=== PATIENT | female | born 1990 | race Caucasian/White ===

== ENCOUNTER 2016-08-11 09:33 | Emergency (ER) | payer OTHER, MEDICAID ==
[~2016-08-11] VITALS: Ht 162.6 cm; Wt 84.5 kg
[~2016-08-11 09:33] MED LIST: AMOXICILLIN 50500 MG PO; AMOXICILLIN 8751 TAB PO; ANUSOL SUP1 SUPP.REC RC; BENADRYL25 M2 PO; CARAFATE 1GM1 G PO; CEFTIN 250250 MG/TAB PO; CIPRO 500MG TA500 MG PO; DROSPIRENONE; FLAGYL500 MG PO; FLEXERIL 1010 MG/TAB PO; FROVA; LAMICTAL 100MG100 MG PO; LAMICTAL150 MG PO; LORTAB 5/500 501 TAB PO; MACROBID 1100 MG/CAP PO; MOTRIN 600600 MG/TAB PO; MOTRIN 800800 MG/TAB PO; NAPROXEN EC375 MG PO; NO HOME MEDICATIONS; NORCO 325 MG-51 TAB PO; NORCO 325 MG-7.1 TAB PO; ORTHO EVRA1 TD1 TD; PEPCID 20MG TAB20 MG PO; PERCOCET 325 MG1 TA2 PO; PHENERGAN 25 TA25 MG; PHENERGAN 25 TA25 MG PO; PRENATABS CBF1 TAB PO; PRENATAL MVI PO; PRENATAL1 TA2 PO; PRENATAL1 TA3 PO; PRILOSEC 20MG20 MG PO; PROMETHAZINE12.5 M5 PO; SENOKOT S 50 MG1 TAB PO; TYLENOL W/COD1 UDTAB PO; VITAMIN B12100 MCG PO; ZANTAC 150MG T150 MG PO; ZANTAC 7575 MG; ZOFRAN 4MG T4 MG/TAB PO; ZOFRAN ODT4 MG PO; [UNRECOGNIZED DRUG - OTHER]; birth control PO
[2016-08-11 11:22] LABS: PH 6 (5-8); SQUAMOUS EPITHELIAL 0-2 /hpf; URINE APPEARANCE Clear; URINE BACTERIA Rare /hpf; URINE BILIRUBIN Negative (NEGATIVE); URINE BLOOD Negative (NEGATIVE); URINE COLOR Yellow; URINE GLUCOSE Negative (NEGATIVE); URINE KETONE Negative (NEGATIVE); URINE RBC 0-2 /hpf; URINE UROBILINOGEN Negative (NEGATIVE); URINE WBC 0-2 /hpf
[2016-08-11] MEDS ORDERED: MOTRIN 800800 MG/TAB PO (11:45)
[2016-08-11 12:30] VITALS: BP 126/87; PULSE 82
== END 2016-08-11 12:30 | disposition home or self-care (01) ==
LOC: COL.ER 09:33
PROVIDERS: Emergency Medicine
DX: S40.011A Contusion of right shoulder, initial encounter (principal); S50.01XA Contusion of right elbow, initial encounter; S60.211A Contusion of right wrist, initial encounter; S70.01XA Contusion of right hip, initial encounter; V03.10XA Pedestrian on foot injured in collision with car, pick-up truck or van in traffic accident, initial encounter; Y92.414 Local residential or business street as the place of occurrence of the external cause; Y93.01 Activity, walking, marching and hiking

== ENCOUNTER 2016-09-01 19:14 | Emergency (ER) | payer MEDICAID ==
[~2016-09-01] VITALS: Ht 162.6 cm; Wt 84.5 kg
[2016-09-01 19:26] VITALS: TEMP 97.9
[2016-09-01 21:50] VITALS: BP 123/92; PULSE 82
== END 2016-09-01 21:52 | disposition home or self-care (01) ==
LOC: COL.ER 19:14
DX: G43.909 Migraine, unspecified, not intractable, without status migrainosus (principal)
CPT/HCPCS: J0595; J1200; J1885; J2550

== ENCOUNTER 2016-12-01 21:07 | Emergency (ER) | payer MEDICAID ==
[~2016-12-01] VITALS: Ht 162.6 cm; Wt 90.9 kg
[2016-12-01 21:09] VITALS: BP 130/78; TEMP 99.8
[2016-12-01 21:39] LABS: PH 5 (5-8); URINE APPEARANCE Hazy; URINE BACTERIA Rare /hpf; URINE BILIRUBIN Negative (NEGATIVE); URINE BLOOD Negative (NEGATIVE); URINE COLOR Yellow; URINE GLUCOSE Negative (NEGATIVE); URINE KETONE Trace (NEGATIVE); URINE UROBILINOGEN Negative (NEGATIVE)
[2016-12-01 22:04] LABS: BASO # 0.1 (0.0-0.2); BASO % 0.5 % (0.0-2.0); EOS # 0.2 (0.0-0.7); EOS % 1.9 % (0-4.0); GRAN # 6.4 (1.4-6.5); GRAN % 68.7 % (42.2-75.2); HEMATOCRIT 38.8 % (37.0-47.0); HEMOGLOBIN 13.1 g/dl (12.5-16.0); LYMPH # 2.1 (1.2-3.4); LYMPH % 22.4 % (20.0-51.0); MEAN CELL VOLUME 87 fl (80.0-100.0); MEAN CORPUSCULAR HEMOGLOBIN 29 pg (27.0-31.0); MEAN CORPUSCULAR HGB CONC 34 g/dl (33.0-37.0); MEAN PLATELET VOLUME 9.7 fl (7.4-10.4); MONO # 0.6 (0.1-0.6); MONO % 6.3 % (1.7-9.3); PLATELET COUNT 360 K/mm3 (130-400); RED BLOOD COUNT 4.48 M/mm3 (4.10-5.30); REDCELL DISTRIBUTION WIDTH-CV 13.9 % (11.5-14.5); WHITE BLOOD COUNT 9.4 K/mm3 (4.8-10.8)
[2016-12-01 22:14] LABS: CALCIUM 9.2 mg/dL (8.4-10.2); CREATININE, serum 0.81 mg/dL (0.52-1.25); POTASSIUM 3.5 mmol/L (3.4-5.0)
[2016-12-02 00:37] VITALS: PULSE 94
== END 2016-12-02 00:38 | disposition home or self-care (01) ==
LOC: COL.ER 21:07
PROVIDERS: Emergency Medicine
DX: O20.0 Threatened abortion (principal); Z3A.01 Less than 8 weeks gestation of pregnancy

== ENCOUNTER 2016-12-05 11:13 | Emergency (ER) | payer MEDICAID ==
[~2016-12-05] VITALS: Ht 162.6 cm; Wt 90.9 kg
[2016-12-05 11:19] VITALS: TEMP 97.7
[2016-12-05 11:50] LABS: BASO % 0.5 % (0.0-2.0); EOS # 0.1 (0.0-0.7); EOS % 1.3 % (0-4.0); GRAN # 4.2 (1.4-6.5); GRAN % 66.8 % (42.2-75.2); HEMATOCRIT 37.6 % (37.0-47.0); HEMOGLOBIN 12.7 g/dl (12.5-16.0); LYMPH # 1.5 (1.2-3.4); LYMPH % 24.3 % (20.0-51.0); MEAN CELL VOLUME 87 fl (80.0-100.0); MEAN CORPUSCULAR HEMOGLOBIN 30 pg (27.0-31.0); MEAN CORPUSCULAR HGB CONC 34 g/dl (33.0-37.0); MEAN PLATELET VOLUME 9.9 fl (7.4-10.4); MONO # 0.4 (0.1-0.6); MONO % 6.8 % (1.7-9.3); PLATELET COUNT 295 K/mm3 (130-400); REDCELL DISTRIBUTION WIDTH-CV 13.8 % (11.5-14.5); WHITE BLOOD COUNT 6.3 K/mm3 (4.8-10.8)
[2016-12-05 12:03] LABS: ALANINE AMINOTRANSFERASE 28 U/L (9-52); ALBUMIN 3.9 gm/dL (3.5-5.0); ALKALINE PHOSPHATASE 82 U/L (50-136); ANION GAP 10 mmol/L (7-16); BILIRUBIN,TOTAL 0.6 mg/dL (0.0-1.0); BLOOD UREA NITROGEN 8 mg/dL (7-17); CALCIUM 8.9 mg/dL (8.4-10.2); CARBON DIOXIDE 21 mmol/L (22-30); CHLORIDE 106 mmol/L (98-107); CREATININE, serum 0.64 mg/dL (0.52-1.25); GLUCOSE 83 mg/dL (74-106); LIPASE 51 U/L (23-300); POTASSIUM 3.7 mmol/L (3.4-5.0); SODIUM 137 mmol/L (137-145); TOTAL PROTEIN 7.1 gm/dL (6.4-8.2)
[2016-12-05 12:04] LABS: C-REACTIVE PROTEIN < 0.5 mg/dL (0.0-0.9)
[2016-12-05] MEDS ORDERED: PHENERGAN 25 TA25 MG PO (12:43)
[2016-12-05 12:54] LABS: PH 6 (5-8); URINE APPEARANCE Hazy; URINE BACTERIA Rare /hpf; URINE BILIRUBIN Negative (NEGATIVE); URINE BLOOD Negative (NEGATIVE); URINE COLOR Yellow; URINE GLUCOSE Negative (NEGATIVE); URINE KETONE 2+ (NEGATIVE); URINE UROBILINOGEN Negative (NEGATIVE)
[2016-12-05 13:32] VITALS: BP 124/84; PULSE 96
== END 2016-12-05 13:35 | disposition home or self-care (01) ==
LOC: COL.ER 11:13
PROVIDERS: Emergency Medicine
DX: O99.511 Diseases of the respiratory system complicating pregnancy, first trimester (principal); J02.0 Streptococcal pharyngitis; Z3A.09 9 weeks gestation of pregnancy
CPT/HCPCS: J0561; J1200; J2550; J7030

== ENCOUNTER 2016-12-18 14:21 | Emergency (ER) | payer MEDICAID ==
[~2016-12-18] VITALS: Ht 162.6 cm; Wt 90.9 kg
[2016-12-18 15:25] LABS: PH 5 (5-8); SQUAMOUS EPITHELIAL 0-2 /hpf; URINE APPEARANCE Clear; URINE BACTERIA Rare /hpf; URINE BILIRUBIN Negative (NEGATIVE); URINE BLOOD 1+ (NEGATIVE); URINE COLOR Yellow; URINE GLUCOSE Negative (NEGATIVE); URINE KETONE Negative (NEGATIVE); URINE UROBILINOGEN Negative (NEGATIVE)
[2016-12-18] MEDS ORDERED: MACROBID 1100 MG/CAP PO (15:47)
[2016-12-18 15:55] VITALS: BP 125/70; PULSE 97; TEMP 97.9
== END 2016-12-18 15:55 | disposition home or self-care (01) ==
LOC: COL.ER 14:21
PROVIDERS: Emergency Medicine
DX: O20.0 Threatened abortion (principal); O23.41 Unspecified infection of urinary tract in pregnancy, first trimester; Z3A.08 8 weeks gestation of pregnancy; Z90.49 Acquired absence of other specified parts of digestive tract; Z87.891 Personal history of nicotine dependence

== ENCOUNTER 2017-03-08 21:03 | Emergency (ER) | payer MEDICAID ==
[~2017-03-08] VITALS: Ht 162.6 cm; Wt 88.8 kg
[~2017-03-08 21:03] MED LIST changes: +PHENERGAN25 MG RC; +PROCARDIA XL 3030 MG PO
[2017-03-08 21:06] VITALS: BP 130/74; TEMP 97.8
[2017-03-08 21:59] LABS: BASO % 0.4 % (0.0-2.0); EOS # 0.1 (0.0-0.7); EOS % 1.3 % (0-4.0); GRAN # 7.3 (1.4-6.5); GRAN % 73.4 % (42.2-75.2); LYMPH # 1.9 (1.2-3.4); LYMPH % 19.4 % (20.0-51.0); MEAN CELL VOLUME 91 fl (80.0-100.0); MEAN CORPUSCULAR HGB CONC 35 g/dl (33.0-37.0); MEAN PLATELET VOLUME 9.9 fl (7.4-10.4); MONO # 0.5 (0.1-0.6); MONO % 5.1 % (1.7-9.3); PLATELET COUNT 276 K/mm3 (130-400)
[2017-03-08 22:00] LABS: HEMATOCRIT 34.4 % (37.0-47.0); HEMOGLOBIN 11.9 g/dl (12.5-16.0); MEAN CORPUSCULAR HEMOGLOBIN 31 pg (27.0-31.0)
[2017-03-08 22:14] LABS: ADJUSTED CALCIUM 10.1 mg/dL (8.4-10.2); ALBUMIN 3.5 gm/dL (3.5-5.0); BILIRUBIN,TOTAL 0.2 mg/dL (0.0-1.0); CALCIUM 9.7 mg/dL (8.4-10.2); CREATININE, serum 0.62 mg/dL (0.52-1.25); POTASSIUM 3.7 mmol/L (3.4-5.0); TOTAL PROTEIN 6.6 gm/dL (6.4-8.2)
[2017-03-08] MEDS ORDERED: DICLEGIS PO (22:52)
[2017-03-08 23:30] LABS: COLLECTION METHOD CLEAN CATCH
[2017-03-08 23:36] LABS: PH 7 (5-8); SQUAMOUS EPITHELIAL None Seen /hpf; URINE APPEARANCE Clear; URINE BACTERIA Rare /hpf; URINE BILIRUBIN Negative (NEGATIVE); URINE BLOOD Negative (NEGATIVE); URINE COLOR Straw; URINE GLUCOSE Negative (NEGATIVE); URINE KETONE Trace (NEGATIVE); URINE LEUKOCYTE ESTERASE Negative (NEGATIVE); URINE PROTEIN(semi-quant) Negative (NEGATIVE); URINE RBC 0-2 /hpf; URINE UROBILINOGEN Negative (NEGATIVE); URINE WBC None Seen /hpf
[2017-03-08 23:49] VITALS: PULSE 98
== END 2017-03-08 23:49 | disposition home or self-care (01) ==
LOC: COL.ER 21:03
PROVIDERS: Emergency Medicine
DX: O21.9 Vomiting of pregnancy, unspecified (principal); O99.352 Diseases of the nervous system complicating pregnancy, second trimester; G43.909 Migraine, unspecified, not intractable, without status migrainosus; Z90.49 Acquired absence of other specified parts of digestive tract; Z87.891 Personal history of nicotine dependence; Z3A.19 19 weeks gestation of pregnancy
CPT/HCPCS: J2550; J7030

== ENCOUNTER 2017-03-21 12:57 | Emergency (ER) | payer MEDICAID ==
[~2017-03-21] VITALS: Ht 162.6 cm; Wt 90.5 kg
[~2017-03-21 12:57] MED LIST changes: +DICLEGIS PO
[2017-03-21 13:17] VITALS: TEMP 98.4
[2017-03-21] MEDS ORDERED: ZANTAC 150MG T150 MG PO (13:23)
[2017-03-21 14:24] LABS: BASO % 0.3 % (0.0-2.0); EOS # 0.1 (0.0-0.7); GRAN # 8.7 (1.4-6.5); GRAN % 82.2 % (42.2-75.2); LYMPH # 1.3 (1.2-3.4); MEAN CELL VOLUME 93 fl (80.0-100.0); MEAN CORPUSCULAR HGB CONC 34 g/dl (33.0-37.0); MEAN PLATELET VOLUME 10.1 fl (7.4-10.4); MONO # 0.4 (0.1-0.6); MONO % 4.1 % (1.7-9.3); PLATELET COUNT 265 K/mm3 (130-400); RED BLOOD COUNT 3.76 M/mm3 (4.10-5.30); WHITE BLOOD COUNT 10.6 K/mm3 (4.8-10.8)
[2017-03-21 14:26] LABS: HEMOGLOBIN 11.8 g/dl (12.5-16.0); MEAN CORPUSCULAR HEMOGLOBIN 31 pg (27.0-31.0)
[2017-03-21 14:30] LABS: PROTHROMBIN TIME 11.2 SECONDS (9.7-12.8)
[2017-03-21 14:32] LABS: PARTIAL THROMBOPLASTIN TIME 25.3 SECONDS (26.0-37.0)
[2017-03-21 14:37] LABS: ADJUSTED CALCIUM 9.3 mg/dL (8.4-10.2); ALANINE AMINOTRANSFERASE 20 U/L (9-52); ALBUMIN 3.3 gm/dL (3.5-5.0); ALKALINE PHOSPHATASE 69 U/L (50-136); ANION GAP 6 mmol/L (7-16); BILIRUBIN,TOTAL 0.4 mg/dL (0.0-1.0); BLOOD UREA NITROGEN 7 mg/dL (7-17); CALCIUM 8.7 mg/dL (8.4-10.2); CARBON DIOXIDE 22 mmol/L (22-30); CHLORIDE 107 mmol/L (98-107); GLUCOSE 75 mg/dL (74-106); SODIUM 134 mmol/L (137-145); TOTAL PROTEIN 6.2 gm/dL (6.4-8.2)
[2017-03-21 15:05] LABS: TROPONIN-I < 0.012 ng/mL (0.000-0.034)
[2017-03-21 17:09] VITALS: BP 109/69; PULSE 97
== END 2017-03-21 17:34 | disposition home or self-care (01) ==
LOC: COL.ER 12:57
PROVIDERS: Emergency Medicine
DX: O26.892 Other specified pregnancy related conditions, second trimester (principal); R07.9 Chest pain, unspecified; Z3A.21 21 weeks gestation of pregnancy
CPT/HCPCS: J2550; J7030

== ENCOUNTER 2017-04-23 11:54 | Emergency (ER) | payer MEDICAID ==
[~2017-04-23] VITALS: Ht 162.6 cm; Wt 90.9 kg
[2017-04-23 12:12] VITALS: BP 134/63; TEMP 98.4
[2017-04-23] MEDS ORDERED: BENADRYL25 M2 PO (12:46)
[2017-04-23] MEDS ORDERED: GENTAMICIN EYE D5 ML OS (13:04)
[2017-04-23 14:26] VITALS: PULSE 84
== END 2017-04-23 14:27 | disposition home or self-care (01) ==
LOC: COL.ER 11:54
DX: B99.9 Unspecified infectious disease (principal); H10.89 Other conjunctivitis

== ENCOUNTER 2017-05-08 16:50 | Outpatient (CLI) | payer MEDICAID ==
[~2017-05-08] VITALS: Ht 162.6 cm; Wt 91.4 kg
[~2017-05-08 16:50] MED LIST changes: +GENTAMICIN EYE D5 ML OS
[2017-05-08 17:15] VITALS: BP 127/76; PULSE 103; TEMP 98.5
[2017-05-08 18:13] LABS: COLLECTION METHOD CLEAN CATCH
[2017-05-08 18:15] VITALS: BP 122/78; PULSE 95
[2017-05-08 18:35] LABS: PH 7 (5-8); SQUAMOUS EPITHELIAL 0-2 /hpf; URINE APPEARANCE Clear; URINE BACTERIA Rare /hpf; URINE BILIRUBIN Negative (NEGATIVE); URINE BLOOD Negative (NEGATIVE); URINE COLOR Yellow; URINE GLUCOSE Negative (NEGATIVE); URINE KETONE Negative (NEGATIVE); URINE LEUKOCYTE ESTERASE Negative (NEGATIVE); URINE NITRATE Negative (NEGATIVE); URINE PROTEIN(semi-quant) Negative (NEGATIVE); URINE RBC 0-2 /hpf; URINE UROBILINOGEN Negative (NEGATIVE); URINE WBC 0-2 /hpf
[2017-05-08 19:06] VITALS: BP 122/75; PULSE 100; TEMP 98.4
== END 2017-05-08 19:15 | disposition home or self-care (01) ==
LOC: LDRO 16:50
PROVIDERS: Obstetrics & Gynecology
DX: O36.8130 Decreased fetal movements, third trimester, not applicable or unspecified (principal); O26.893 Other specified pregnancy related conditions, third trimester; R10.9 Unspecified abdominal pain; Z3A.28 28 weeks gestation of pregnancy

== ENCOUNTER 2017-05-30 16:09 | Outpatient (CLI) | payer OTHER, MEDICAID ==
[~2017-05-30] VITALS: Ht 162.6 cm; Wt 93.2 kg
[2017-05-30 16:26] VITALS: BP 123/65; PULSE 97; TEMP 98.4
[2017-05-30 16:40] VITALS: BP 127/72; PULSE 91
[2017-05-30 16:45] VITALS: BP 123/65; PULSE 97; TEMP 98.7
[2017-05-30 17:02] VITALS: BP 134/81; PULSE 94
== END 2017-05-30 17:35 | disposition home or self-care (01) ==
LOC: LDRO 16:09
DX: O36.8130 Decreased fetal movements, third trimester, not applicable or unspecified (principal); Z3A.31 31 weeks gestation of pregnancy

== ENCOUNTER 2017-05-30 21:24 | Outpatient (CLI) | payer OTHER, MEDICAID ==
[~2017-05-30] VITALS: Ht 162.6 cm; Wt 93.2 kg
[2017-05-30 21:48] VITALS: BP 143/82; PULSE 108; TEMP 98.2
[2017-05-30 22:15] VITALS: BP 129/74; PULSE 100
[2017-05-30 22:24] VITALS: BP 128/75; PULSE 90; TEMP 98.1
[2017-05-30 22:24] LABS: COLLECTION METHOD CLEAN CATCH
[2017-05-30 22:29] LABS: PH 6 (5-8); SQUAMOUS EPITHELIAL 0-2 /hpf; URINE APPEARANCE Clear; URINE BACTERIA Rare /hpf; URINE BILIRUBIN Negative (NEGATIVE); URINE BLOOD Negative (NEGATIVE); URINE COLOR Yellow; URINE GLUCOSE Negative (NEGATIVE); URINE KETONE Negative (NEGATIVE); URINE LEUKOCYTE ESTERASE Negative (NEGATIVE); URINE NITRATE Negative (NEGATIVE); URINE PROTEIN(semi-quant) Negative (NEGATIVE); URINE RBC 0-2 /hpf; URINE UROBILINOGEN Negative (NEGATIVE); URINE WBC 0-2 /hpf
== END 2017-05-30 23:05 | disposition home or self-care (01) ==
LOC: LDRO 21:24
PROVIDERS: Obstetrics & Gynecology
DX: O26.893 Other specified pregnancy related conditions, third trimester (principal); Z3A.31 31 weeks gestation of pregnancy

== ENCOUNTER 2017-06-04 14:15 | Emergency (ER) | payer OTHER, MEDICAID ==
[~2017-06-04] VITALS: Ht 162.6 cm; Wt 93.2 kg
[2017-06-04 14:22] VITALS: TEMP 98.3
[2017-06-04 15:07] LABS: BASO % 0.3 % (0.0-2.0); EOS # 0.1 (0.0-0.7); EOS % 0.4 % (0-4.0); GRAN # 12.9 (1.4-6.5); GRAN % 85.7 % (42.2-75.2); HEMATOCRIT 37.8 % (37.0-47.0); HEMOGLOBIN 12.9 g/dl (12.5-16.0); LYMPH # 1.5 (1.2-3.4); LYMPH % 9.6 % (20.0-51.0); MEAN CELL VOLUME 93 fl (80.0-100.0); MEAN CORPUSCULAR HEMOGLOBIN 32 pg (27.0-31.0); MEAN CORPUSCULAR HGB CONC 34 g/dl (33.0-37.0); MEAN PLATELET VOLUME 10.5 fl (7.4-10.4); MONO # 0.5 (0.1-0.6); MONO % 3.6 % (1.7-9.3); PLATELET COUNT 289 K/mm3 (130-400); RED BLOOD COUNT 4.05 M/mm3 (4.10-5.30); REDCELL DISTRIBUTION WIDTH-CV 13.5 % (11.5-14.5)
[2017-06-04 15:15] LABS: ALBUMIN 3.6 gm/dL (3.5-5.0); BILIRUBIN,TOTAL 0.4 mg/dL (0.0-1.0); CREATININE, serum 0.62 mg/dL (0.52-1.25); TOTAL PROTEIN 7.1 gm/dL (6.4-8.2)
[2017-06-04] MEDS ORDERED: PHENERGAN 25 TA25 MG PO (15:32)
[2017-06-04 17:38] VITALS: BP 116/78; PULSE 100
== END 2017-06-04 17:40 | disposition home or self-care (01) ==
LOC: LDRO 14:15 → COL.ER 14:15 → EDSTATUS 14:18 → COL.ER 17:40
PROVIDERS: Emergency Medicine
DX: O21.2 Late vomiting of pregnancy (principal); O99.343 Other mental disorders complicating pregnancy, third trimester; G43.909 Migraine, unspecified, not intractable, without status migrainosus; F31.9 Bipolar disorder, unspecified; O13.3 Gestational [pregnancy-induced] hypertension without significant proteinuria, third trimester; Z90.49 Acquired absence of other specified parts of digestive tract; Z87.891 Personal history of nicotine dependence; Z3A.32 32 weeks gestation of pregnancy
CPT/HCPCS: J2550; J7030

== ENCOUNTER 2017-07-09 07:28 | Outpatient (CLI) | payer OTHER, MEDICAID ==
[~2017-07-09] VITALS: Ht 162.6 cm; Wt 94.5 kg
[2017-07-09 07:42] VITALS: BP 130/84; PULSE 97; TEMP 98.2
[2017-07-09 08:45] VITALS: BP 130/84; PULSE 97; TEMP 98.2
[2017-07-09 09:45] VITALS: BP 134/81; PULSE 90
== END 2017-07-09 10:00 | disposition home or self-care (01) ==
LOC: LDRO 07:28 → LDR 08:00 → LDRO 10:00
DX: O62.9 Abnormality of forces of labor, unspecified (principal); Z3A.36 36 weeks gestation of pregnancy
CPT/HCPCS: OP

== ENCOUNTER 2017-07-14 02:37 | Outpatient (CLI) | payer OTHER, MEDICAID ==
[~2017-07-14] VITALS: Ht 162.6 cm; Wt 95.0 kg
[2017-07-14 03:30] VITALS: BP 121/76; PULSE 90; TEMP 97.5
[2017-07-14 04:00] VITALS: BP 113/73; PULSE 92
== END 2017-07-14 04:00 | disposition home or self-care (01) ==
LOC: LDRO 02:37
DX: O62.9 Abnormality of forces of labor, unspecified (principal); Z3A.37 37 weeks gestation of pregnancy

== ENCOUNTER 2017-07-17 18:07 | Outpatient (CLI) | payer OTHER, MEDICAID ==
[~2017-07-17] VITALS: Ht 162.6 cm; Wt 95.0 kg
[2017-07-17 18:22] VITALS: BP 132/95; PULSE 110; TEMP 98.1
[2017-07-17 19:00] VITALS: BP 133/83; PULSE 96
[2017-07-17 19:30] VITALS: BP 131/81; PULSE 99
[2017-07-17 19:57] VITALS: BP 132/78; PULSE 103
== END 2017-07-17 20:12 | disposition home or self-care (01) ==
LOC: LDRO 18:07
DX: O42.02 Full-term premature rupture of membranes, onset of labor within 24 hours of rupture (principal); Z3A.38 38 weeks gestation of pregnancy; Z87.891 Personal history of nicotine dependence

== ENCOUNTER 2017-07-19 21:18 | Outpatient (CLI) | payer OTHER, MEDICAID ==
[~2017-07-19] VITALS: Ht 162.6 cm; Wt 95.5 kg
[2017-07-19 21:36] VITALS: BP 128/66; PULSE 103; TEMP 98.4
[2017-07-19 22:00] VITALS: BP 133/83; PULSE 95
[2017-07-19 22:30] VITALS: BP 121/60; PULSE 93
[2017-07-19 23:00] VITALS: BP 123/62; PULSE 93
== END 2017-07-19 23:10 | disposition home or self-care (01) ==
LOC: LDRO 21:18
DX: O62.9 Abnormality of forces of labor, unspecified (principal); Z3A.38 38 weeks gestation of pregnancy

== ENCOUNTER 2017-07-20 01:25 | Inpatient (IN) | payer OTHER, MEDICAID ==
[2017-07-20] VITALS (38 sets, daily range): BP systolic 101–154; BP diastolic 44–88; PULSE 82–130; TEMP 97.8–99.2
[~2017-07-20] VITALS: Ht 162.6 cm; Wt 95.5 kg
[2017-07-20 02:19] LABS: BASO % 0.3 % (0.0-2.0); EOS # 0.2 (0.0-0.7); EOS % 1.3 % (0-4.0); GRAN # 9.1 (1.4-6.5); GRAN % 69.7 % (42.2-75.2); HEMATOCRIT 38.3 % (37.0-47.0); HEMOGLOBIN 12.9 g/dl (12.5-16.0); LYMPH # 2.9 (1.2-3.4); LYMPH % 22.3 % (20.0-51.0); MEAN CELL VOLUME 93 fl (80.0-100.0); MEAN CORPUSCULAR HEMOGLOBIN 31 pg (27.0-31.0); MEAN CORPUSCULAR HGB CONC 34 g/dl (33.0-37.0); MEAN PLATELET VOLUME 11.2 fl (7.4-10.4); MONO # 0.8 (0.1-0.6); PLATELET COUNT 245 K/mm3 (130-400); RED BLOOD COUNT 4.12 M/mm3 (4.10-5.30); REDCELL DISTRIBUTION WIDTH-CV 13.3 % (11.5-14.5)
[2017-07-21 02:20] VITALS: BP 116/70; PULSE 96; TEMP 97.6
[2017-07-21 07:00] VITALS: BP 125/81; PULSE 90; TEMP 97.5
[2017-07-21] MEDS ORDERED: PERCOCET 325 MG1 TA2 PO (12:03)
[2017-07-21] MEDS ORDERED: IBU600 MG PO (12:04)
[2017-07-21 12:30] VITALS: BP 118/66; PULSE 86; TEMP 97.6
[2017-07-21 13:00] VITALS: BP 125/73; PULSE 88; TEMP 97.7
== END 2017-07-21 13:30 | disposition home or self-care (01) | DRG 775 ==
LOC: LDRO 01:25 → LDR 01:48 → OB 01:48
PROVIDERS: Obstetrics & Gynecology
PROC: 10E0XZZ Delivery of Products of Conception, External Approach (ICD-10-PCS; principal; 2017-07-20)
DX: O13.4 Gestational [pregnancy-induced] hypertension without significant proteinuria, complicating childbirth (principal); O76 Abnormality in fetal heart rate and rhythm complicating labor and delivery; Z3A.38 38 weeks gestation of pregnancy; Z37.0 Single live birth
CPT/HCPCS: J2405; J2590; J7120

== ENCOUNTER 2017-12-24 19:15 | Emergency (ER) | payer OTHER, MEDICAID ==
[~2017-12-24] VITALS: Ht 162.6 cm; Wt 94.1 kg
[~2017-12-24 19:15] MED LIST changes: +IBU600 MG PO
[2017-12-24 19:28] VITALS: BP 140/81; TEMP 96.8
[2017-12-24 20:21] LABS: BASO % 0.5 % (0.0-2.0); EOS # 0.4 (0.0-0.7); EOS % 5.1 % (0-4.0); GRAN # 4.3 (1.4-6.5); HEMATOCRIT 40.2 % (37.0-47.0); HEMOGLOBIN 13.2 g/dl (12.5-16.0); LYMPH # 2.6 (1.2-3.4); LYMPH % 33.4 % (20.0-51.0); MEAN CELL VOLUME 89 fl (80.0-100.0); MEAN CORPUSCULAR HEMOGLOBIN 29 pg (27.0-31.0); MEAN CORPUSCULAR HGB CONC 33 g/dl (33.0-37.0); MEAN PLATELET VOLUME 9.8 fl (7.4-10.4); MONO # 0.5 (0.1-0.6); MONO % 5.9 % (1.7-9.3); PLATELET COUNT 314 K/mm3 (130-400); RED BLOOD COUNT 4.54 M/mm3 (4.10-5.30)
[2017-12-24 20:32] LABS: ALBUMIN 3.9 gm/dL (3.5-5.0); BILIRUBIN,TOTAL 0.3 mg/dL (0.0-1.0); C-REACTIVE PROTEIN 0.7 mg/dL (0.0-0.9); CALCIUM 8.9 mg/dL (8.4-10.2); CREATININE, serum 0.66 mg/dL (0.52-1.25); TOTAL PROTEIN 7.2 gm/dL (6.4-8.2)
[2017-12-24 22:07] VITALS: PULSE 80
== END 2017-12-24 22:08 | disposition home or self-care (01) ==
LOC: COL.ER 19:15
PROVIDERS: Nurse Practitioner
DX: G43.909 Migraine, unspecified, not intractable, without status migrainosus (principal); F31.9 Bipolar disorder, unspecified; F44.81 Dissociative identity disorder; F17.210 Nicotine dependence, cigarettes, uncomplicated; Z79.891 Long term (current) use of opiate analgesic; Z79.1 Long term (current) use of non-steroidal anti-inflammatories (NSAID)
CPT/HCPCS: J1200; J1885; J2550; J2765; J7030

== ENCOUNTER 2018-01-28 21:49 | Emergency (ER) | payer OTHER, MEDICAID ==
[~2018-01-28] VITALS: Ht 162.6 cm; Wt 90.0 kg
[~2018-01-28 21:49] MED LIST changes: +PROTONIX 40MG T40 MG PO
[2018-01-28 22:35] LABS: BASO # 0.1 (0.0-0.2); BASO % 0.6 % (0.0-2.0); EOS # 0.3 (0.0-0.7); EOS % 4.1 % (0-4.0); GRAN # 4.3 (1.4-6.5); GRAN % 54.7 % (42.2-75.2); HEMATOCRIT 40.3 % (37.0-47.0); HEMOGLOBIN 13.6 g/dl (12.5-16.0); LYMPH # 2.6 (1.2-3.4); LYMPH % 33.4 % (20.0-51.0); MEAN CELL VOLUME 88 fl (80.0-100.0); MEAN CORPUSCULAR HEMOGLOBIN 30 pg (27.0-31.0); MEAN CORPUSCULAR HGB CONC 34 g/dl (33.0-37.0); MEAN PLATELET VOLUME 9.7 fl (7.4-10.4); MONO # 0.6 (0.1-0.6); MONO % 7.1 % (1.7-9.3); PLATELET COUNT 343 K/mm3 (130-400); RED BLOOD COUNT 4.56 M/mm3 (4.10-5.30); REDCELL DISTRIBUTION WIDTH-CV 13.1 % (11.5-14.5)
[2018-01-28 22:41] LABS: ALBUMIN 4.2 gm/dL (3.5-5.0); BILIRUBIN,TOTAL 0.7 mg/dL (0.0-1.0); CALCIUM 9.8 mg/dL (8.4-10.2); CREATININE, serum 0.76 mg/dL (0.52-1.25); TOTAL PROTEIN 7.7 gm/dL (6.4-8.2)
[2018-01-28 22:51] LABS: COLLECTION METHOD CLEAN CATCH
[2018-01-28 23:01] LABS: MUCOUS Present /lpf; PH 6 (5-8); SQUAMOUS EPITHELIAL 20-50 /hpf; URINE APPEARANCE Cloudy; URINE BACTERIA None Seen /hpf; URINE BILIRUBIN Negative (NEGATIVE); URINE BLOOD Negative (NEGATIVE); URINE COLOR Yellow; URINE GLUCOSE Negative (NEGATIVE); URINE KETONE Negative (NEGATIVE); URINE LEUKOCYTE ESTERASE 1+ (NEGATIVE); URINE NITRATE Negative (NEGATIVE); URINE PROTEIN(semi-quant) Negative (NEGATIVE); URINE RBC 0-2 /hpf; URINE UROBILINOGEN Negative (NEGATIVE)
[2018-01-28] MEDS ORDERED: CIPRO 500MG TA500 MG PO (23:18)
[2018-01-28 23:48] VITALS: BP 137/88; PULSE 95; TEMP 98.1
== END 2018-01-28 23:48 | disposition home or self-care (01) ==
LOC: COL.ER 21:49
PROVIDERS: Nurse Practitioner Primary Care
DX: N39.0 Urinary tract infection, site not specified (principal); K21.9 Gastro-esophageal reflux disease without esophagitis; G43.909 Migraine, unspecified, not intractable, without status migrainosus; Z90.49 Acquired absence of other specified parts of digestive tract
CPT/HCPCS: J1885; J2405; J2550

== ENCOUNTER 2018-07-17 18:52 | Emergency (ER) | payer OTHER ==
[~2018-07-17] VITALS: Ht 162.6 cm; Wt 90.9 kg
[2018-07-17 18:55] VITALS: BP 143/89; TEMP 97.5
[2018-07-17 19:22] LABS: COLLECTION METHOD CLEAN CATCH
[2018-07-17 19:29] LABS: BASO # 0.1 (0.0-0.2); BASO % 0.5 % (0.0-2.0); EOS # 0.2 (0.0-0.7); EOS % 1.7 % (0-4.0); GRAN # 7.1 (1.4-6.5); GRAN % 69.4 % (42.2-75.2); HEMATOCRIT 43.5 % (37.0-47.0); HEMOGLOBIN 14.1 g/dl (12.5-16.0); LYMPH # 2.3 (1.2-3.4); LYMPH % 22.8 % (20.0-51.0); MEAN CELL VOLUME 90 fl (80.0-100.0); MEAN CORPUSCULAR HEMOGLOBIN 29 pg (27.0-31.0); MEAN CORPUSCULAR HGB CONC 32 g/dl (33.0-37.0); MONO # 0.5 (0.1-0.6); MONO % 5.3 % (1.7-9.3); PH 5 (5-8); PLATELET COUNT 355 K/mm3 (130-400); RED BLOOD COUNT 4.83 M/mm3 (4.10-5.30); REDCELL DISTRIBUTION WIDTH-CV 13.2 % (11.5-14.5); URINE APPEARANCE Hazy; URINE BACTERIA None Seen /hpf; URINE BILIRUBIN Negative (NEGATIVE); URINE BLOOD 1+ (NEGATIVE); URINE COLOR Yellow; URINE GLUCOSE Negative (NEGATIVE); URINE KETONE Negative (NEGATIVE); URINE LEUKOCYTE ESTERASE 1+ (NEGATIVE); URINE NITRATE Negative (NEGATIVE); URINE PROTEIN(semi-quant) 1+ (NEGATIVE); URINE RBC 0-2 /hpf; URINE UROBILINOGEN Negative (NEGATIVE)
[2018-07-17 19:39] LABS: ALANINE AMINOTRANSFERASE 20 U/L (9-52); ALBUMIN 3.9 gm/dL (3.5-5.0); ALKALINE PHOSPHATASE 91 U/L (50-136); ANION GAP 10 mmol/L (7-16); AST,SGOT 20 U/L (15-37); BILIRUBIN,TOTAL 0.2 mg/dL (0.0-1.0); BLOOD UREA NITROGEN 16 mg/dL (7-17); CALCIUM 8.8 mg/dL (8.4-10.2); CARBON DIOXIDE 20 mmol/L (22-30); CHLORIDE 109 mmol/L (98-107); CREATININE, serum 0.82 mg/dL (0.52-1.25); GLUCOSE 104 mg/dL (74-106); LIPASE 68 U/L (23-300); POTASSIUM 4.1 mmol/L (3.4-5.0); SODIUM 140 mmol/L (137-145); TOTAL PROTEIN 7.1 gm/dL (6.4-8.2)
[2018-07-17 19:40] LABS: C-REACTIVE PROTEIN < 0.5 mg/dL (0.0-0.9)
[2018-07-17] MEDS ORDERED: REGLAN 10MG10 MG/TAB PO (21:43)
[2018-07-17] MEDS ORDERED: NORCO 325 MG-51 TAB PO (21:43)
[2018-07-17] MEDS ORDERED: BENTYL 20MG20 MG/TAB PO (21:43)
[2018-07-17 22:01] VITALS: PULSE 99
== END 2018-07-17 22:00 | disposition home or self-care (01) ==
LOC: COL.ER 18:52
PROVIDERS: Emergency Medicine
DX: R10.11 Right upper quadrant pain (principal); R11.0 Nausea; G43.909 Migraine, unspecified, not intractable, without status migrainosus; Z87.891 Personal history of nicotine dependence; Z90.49 Acquired absence of other specified parts of digestive tract; Z88.6 Allergy status to analgesic agent; Z88.8 Allergy status to other drugs, medicaments and biological substances
CPT/HCPCS: J0500; J2405; J2765; J3010; J7030; Q9967

== ENCOUNTER 2018-10-26 19:58 | Emergency (ER) | payer OTHER ==
[~2018-10-26 19:58] MED LIST changes: +BENTYL 20MG20 MG/TAB PO; +REGLAN 10MG10 MG/TAB PO
[2018-10-26 20:06] VITALS: TEMP 98.3
[2018-10-26] MEDS ORDERED: CEPHALEXIN500 M1 PO (20:35)
[2018-10-26] MEDS ORDERED: NORCO 325 MG-51 TAB PO (20:35)
[2018-10-26 21:09] VITALS: BP 141/65; PULSE 109
== END 2018-10-26 21:09 | disposition home or self-care (01) ==
LOC: COL.ER 19:58
DX: N61.0 Mastitis without abscess (principal)

== ENCOUNTER 2019-02-12 16:23 | Emergency (ER) | payer OTHER ==
[~2019-02-12] VITALS: Ht 162.6 cm; Wt 90.9 kg
[~2019-02-12 16:23] MED LIST changes: +CEPHALEXIN500 M1 PO
[2019-02-12 16:33] VITALS: TEMP 97.7
[2019-02-12 17:33] LABS: BASO % 0.1 % (0.0-2.0); EOS % 0.1 % (0-4.0); GRAN # 13.4 (1.4-6.5); GRAN % 87.6 % (42.2-75.2); HEMATOCRIT 49.1 % (37.0-47.0); HEMOGLOBIN 15.8 g/dl (12.5-16.0); LYMPH # 1.3 (1.2-3.4); LYMPH % 8.6 % (20.0-51.0); MEAN CELL VOLUME 89 fl (80.0-100.0); MEAN CORPUSCULAR HEMOGLOBIN 29 pg (27.0-31.0); MEAN CORPUSCULAR HGB CONC 32 g/dl (33.0-37.0); MONO # 0.5 (0.1-0.6); MONO % 3.3 % (1.7-9.3); PLATELET COUNT 389 K/mm3 (130-400); RED BLOOD COUNT 5.51 M/mm3 (4.10-5.30); REDCELL DISTRIBUTION WIDTH-CV 13.3 % (11.5-14.5)
[2019-02-12 17:37] LABS: ALBUMIN 4.4 gm/dL (3.5-5.0); BILIRUBIN,TOTAL 0.3 mg/dL (0.0-1.0); C-REACTIVE PROTEIN 1.2 mg/dL (0.0-0.9); CALCIUM 9.3 mg/dL (8.4-10.2); CREATININE, serum 0.82 (0.52-1.25); POTASSIUM 4.3 mmol/L (3.4-5.0); TOTAL PROTEIN 8.1 gm/dL (6.4-8.2)
[2019-02-12 18:32] LABS: COLLECTION METHOD CLEAN CATCH
[2019-02-12 18:38] LABS: MUCOUS Present /lpf; PH 6 (5-8); SQUAMOUS EPITHELIAL 0-2 /hpf; URINE APPEARANCE Clear; URINE BACTERIA Rare /hpf; URINE BILIRUBIN Negative (NEGATIVE); URINE BLOOD Negative (NEGATIVE); URINE COLOR Yellow; URINE GLUCOSE Negative (NEGATIVE); URINE KETONE Trace (NEGATIVE); URINE LEUKOCYTE ESTERASE Negative (NEGATIVE); URINE NITRATE Negative (NEGATIVE); URINE PROTEIN(semi-quant) Negative (NEGATIVE); URINE RBC 0-2 /hpf; URINE UROBILINOGEN Negative (NEGATIVE)
[2019-02-12] MEDS ORDERED: NEXIUM 20MG20 MG PO (19:36)
[2019-02-12] MEDS ORDERED: PHENERGAN 25 TA25 MG PO (19:38)
[2019-02-12 19:48] VITALS: BP 120/87; PULSE 104
== END 2019-02-12 19:52 | disposition home or self-care (01) ==
LOC: COL.ER 16:23
PROVIDERS: Emergency Medicine
DX: R10.13 Epigastric pain (principal); Z90.89 Acquired absence of other organs
CPT/HCPCS: J0780; J1170; J7030; Q9967

== ENCOUNTER 2019-03-13 16:44 | Emergency (ER) | payer OTHER ==
[~2019-03-13] VITALS: Ht 162.6 cm; Wt 97.7 kg
[~2019-03-13 16:44] MED LIST changes: +NEXIUM 20MG20 MG PO
[2019-03-13 17:01] VITALS: TEMP 98.3
[2019-03-13 18:37] LABS: BASO % 0.5 % (0.0-2.0); EOS # 0.1 (0.0-0.7); EOS % 0.9 % (0-4.0); GRAN % 73.3 % (42.2-75.2); HEMATOCRIT 42.4 % (37.0-47.0); HEMOGLOBIN 13.9 g/dl (12.5-16.0); LYMPH # 1.6 (1.2-3.4); LYMPH % 19.6 % (20.0-51.0); MEAN CELL VOLUME 88 fl (80.0-100.0); MEAN CORPUSCULAR HEMOGLOBIN 29 pg (27.0-31.0); MEAN CORPUSCULAR HGB CONC 33 g/dl (33.0-37.0); MEAN PLATELET VOLUME 9.7 fl (7.4-10.4); MONO # 0.4 (0.1-0.6); MONO % 5.1 % (1.7-9.3); PLATELET COUNT 324 K/mm3 (130-400); REDCELL DISTRIBUTION WIDTH-CV 13.2 % (11.5-14.5)
[2019-03-13 18:41] LABS: ALBUMIN 4.4 gm/dL (3.5-5.0); BILIRUBIN,TOTAL 0.4 mg/dL (0.0-1.0); CALCIUM 9.2 mg/dL (8.4-10.2); CREATININE, serum 0.73 (0.52-1.25); POTASSIUM 3.7 mmol/L (3.4-5.0); TOTAL PROTEIN 7.9 gm/dL (6.4-8.2)
[2019-03-13 20:12] VITALS: BP 126/81; PULSE 86
== END 2019-03-13 20:19 | disposition home or self-care (01) ==
LOC: COL.ER 16:44
PROVIDERS: Nurse Practitioner
DX: S16.1XXA Strain of muscle, fascia and tendon at neck level, initial encounter (principal); G43.909 Migraine, unspecified, not intractable, without status migrainosus; F31.9 Bipolar disorder, unspecified; W10.9XXA Fall (on) (from) unspecified stairs and steps, initial encounter; Z87.891 Personal history of nicotine dependence; Z88.5 Allergy status to narcotic agent; Z90.89 Acquired absence of other organs
CPT/HCPCS: J1200; J1885; J2765; J7030

== ENCOUNTER 2023-12-28 08:00 | Outpatient (CLI) | payer MEDICAID ==
[~2023-12-28] VITALS: Ht 162.7 cm; Wt 89.0 kg
[2023-12-28] MEDS ORDERED: LAMICTAL 25MG T25 MG PO (08:41)
[2023-12-28] MEDS ORDERED: PRINIVIL10 MG PO (08:41)
[2023-12-28] MEDS ORDERED: INDERAL 20MG20 MG PO (08:42)
[2023-12-28] MEDS ORDERED: QELBREE200 MG PO (08:42)
[2023-12-28] MEDS ORDERED: FLEXERIL5 MG PO (08:43)
[2023-12-28 08:56] VITALS: BP 136/84; PULSE 95; TEMP 97.9
[2023-12-28 10:24] VITALS: BP 129/79; PULSE 94
[2023-12-28 10:30] VITALS: BP 115/81; PULSE 90
[2023-12-28 10:45] VITALS: BP 122/75; PULSE 100
[2023-12-28 11:00] VITALS: BP 122/75; PULSE 93
[2023-12-28] MEDS ORDERED: TIAZAC120 MG PO (12:10)
--- NOTE | 2023-12-28 12:23 | NUR ---
PT TOLERATED RECOVERY PERIOD WELL. VS REMAINED WITHIN NORMAL LIMITS. PT WAS ASSISTED TO MAIN LOBBY VIA WHEELCHAIR UPON DISCHARGE. IV DISCONTINUED. PT VERBALIZED UNDERSTANDING OF DISCHARGE INSTRUCTIONS AND REMAINED FREE FROM ACUTE CONCERNS AND COMPLAINTS.
== END 2023-12-28 12:24 | disposition home or self-care (01) ==
LOC: COL.CAR 08:00
DX: R55 Syncope and collapse (principal)